=== PATIENT | male | born 1985 | race Caucasian/White ===

== ENCOUNTER 2017-03-03 10:29 | Emergency (ER) | payer SELFPAY ==
[2017-03-03 10:47] VITALS: BP 129/81
--- NOTE | 2017-03-03 11:31 | EDM.PDOC ---
ED HPI GENERAL MEDICAL PROBLEM - General Chief Complaint: Eye Problems Stated Complaint: FB IN LEFT EYE Time Seen by Provider: 03/03/17 10:49 Source of Information: Reports: Patient History Limitations: Reports: No Limitations - History of Present Illness INITIAL COMMENTS - FREE TEXT/NARRATIVE: The patient presents with left eye redness and discomfort. This started late last week. He had been working cattle in the wind and dust and thought he may have gotten something in his eye. He also was grinding with some safety glasses on a few days ago. He has no blurred vision or double vision. He does not wear contacts or glasses. Onset: Gradual Duration: Day(s): Location: Reports: Other (Left eye) Quality: Reports: Sharp Severity: Moderate Improves with: Reports: None Worsens with: Reports: None Associated Symptoms: Reports: No Other Symptoms Left Eye Pain Score (Numeric/FACES): 7 - Related Data Allergies Allergy/AdvReac Type Severity Reaction Status Date / Time No Known Allergies Allergy Verified 03/03/17 10:47 Home Meds: Home Meds Ciprofloxacin [IJD: Ciloxan 0.3% Ophth Soln] 1 drop EYELF .EVERY 4 HOURS #5 ml 03/03/17 [Rx] Past Medical History - Past Health History Medical/Surgical History: Denies Medical/Surgical History Social & Family History - Family History Family Medical History: Noncontributory - Tobacco Use Smoking Status *Q: Current Some Day Smoker Years of Tobacco use: 1 Packs/Tins Daily: 0.1 - Caffeine Use Caffeine Use: Reports: Soda - Recreational Drug Use Recreational Drug Use: No ED ROS GENERAL - Review of Systems Review Of Systems: See Below Constitutional: Reports: No Symptoms HEENT: Reports: Eye Pain Respiratory: Reports: No Symptoms Cardiovascular: Reports: No Symptoms Endocrine: Reports: No Symptoms GI/Abdominal: Reports: No Symptoms : Reports: No Symptoms ED EXAM GENERAL W FULL EYE - Physical Exam Exam: See Below Exam Limited By: No Limitations General Appearance: Alert, No Apparent Distress Eye Exam: Left Eye: Conjunctival Injection, Corneal Abrasion, Foreign Body ( Metal with a slight rust ring), Bilateral Eye: EOMI, PERRL Eyelids: Left: Lid Everted for Exam, Bilateral: Normal Appearance Conjunctiva & Sclera: Left: Injected Cornea Exam: Left: Corneal Abrasion, Foreign Body (Piece of metal to the medial eye), Examined with Flourescein Extraocular Movements: Bilateral: Intact Pupillary Size: Bilateral: 4 mm Pupillary Reaction: Bilateral: Brisk Anterior Chamber: Left: Normal Appearance Ears: Normal External Exam Nose: Normal Inspection Head: Atraumatic, Normocephalic Respiratory/Chest: No Respiratory Distress ED EYE w/ Add Procedure - Eye Procedure Alcaine Drops Administered: Yes (Proparacaine) Eye FB Removal: other (Removed with eye spud) Eye Irrigated w/ Saline (ccs): 10 Progress: The rust ring was removed with the spur drill Course - Vital Signs Last Recorded V/S: Last Vital Signs Temp 97.0 F 03/03/17 10:44 Pulse 58 L 03/03/17 10:44 Resp 16 03/03/17 10:44 BP 129/81 03/03/17 10:44 Pulse Ox 100 03/03/17 10:44 - Re-Assessments/Exams Free Text/Narrative Re-Assessment/Exam: 03/03/17 11:33 I was able to remove the metal with an eye spud and removed the rust ring. I will get him on some cipro drops. Departure - Departure Time of Disposition: 11:35 Disposition: Home, Self-Care 01 Condition: good Clinical Impression: Corneal abrasion Qualifiers: Encounter type: initial encounter Laterality: left Qualified Code(s): S05.02XA - Injury of conjunctiva and corneal abrasion without foreign body, left eye, initial encounter Corneal FB (foreign body) Qualifiers: Encounter type: initial encounter Laterality: left Qualified Code(s): T15.02XA - Foreign body in cornea, left eye, initial encounter - Discharge Information Prescriptions: Ciprofloxacin [IJD: Ciloxan 0.3% Ophth Soln] 1 drop EYELF .EVERY 4 HOURS #5 ml Forms: ED Department Discharge Additional Instructions: Use the cipro drop 1 drop every 4 hours as while awake for 1 week. Please return if you are worse.
== END 2017-03-03 11:47 | disposition home or self-care (01) ==
LOC: JD.ED 10:29
DX: S05.02XA Injury of conjunctiva and corneal abrasion without foreign body, left eye, initial encounter (principal); T15.02XA Foreign body in cornea, left eye, initial encounter; F17.210 Nicotine dependence, cigarettes, uncomplicated
CPT/HCPCS: 65220; 65222; 99283; 99283-25

== ENCOUNTER 2018-01-06 13:23 | Emergency (ER) | payer OTHER ==
[2018-01-06 13:39] VITALS: BP 136/96
[2018-01-06] MEDS ORDERED: Acetaminophen/HYDROcodone 325-5 MG Tab PO ONE (13:53)
[2018-01-06] MEDS ORDERED: ceFAZolin 1 GM Vial IM ONE (13:53)
--- NOTE | 2018-01-06 14:01 | EDM.PDOC ---
ED HPI GENERAL MEDICAL PROBLEM - General Chief Complaint: Lower Extremity Injury/Pain Stated Complaint: R LEG INJURY Time Seen by Provider: 01/06/18 13:45 Source of Information: Reports: Patient History Limitations: Reports: No Limitations - History of Present Illness INITIAL COMMENTS - FREE TEXT/NARRATIVE: Patient is a 32-year-old male who presents to the ED complaining of fracture to the tibia proximal to the knee diagnosed at [facility] at [facility] via x-ray. Patient works as an data processing operator and a circular piece of metal with a metal bur to the end flew approximately 50 feet through the escalator door into the patient's right leg. Bleeding is minimal. Pain is localized to the small puncture site and fracture. No sensory motor deficits distally. Tetanus status is up-to-date. Patient has been nonweightbearing since evaluated at [facility]. He has no additional past medical history. Currently taking no medications. Patient does use chewing tobacco. Right Leg Pain Score (Numeric/FACES): 8 - Related Data Allergies Allergy/AdvReac Type Severity Reaction Status Date / Time No Known Allergies Allergy Verified 03/03/17 10:47 Home Meds: Home Meds Acetaminophen/HYDROcodone [[place] 325-5 MG] 1 tab PO Q6H PRN #20 tablet 01/06/18 [Rx] Cephalexin [Keflex] 500 mg PO Q6H #40 cap 01/06/18 [Rx] Past Medical History - Past Health History Medical/Surgical History: Denies Medical/Surgical History - Past Surgical History Musculoskeletal Surgical History: Reports: Arthroscopic Procedure, Shoulder Surgery, Other (See Below) Other Musculoskeletal Surgeries/Procedures:: rt shoulder Social & Family History - Family History Family Medical History: Noncontributory - Tobacco Use Smoking Status *Q: Current Some Day Smoker Years of Tobacco use: 1 Packs/Tins Daily: 0.1 - Caffeine Use Caffeine Use: Reports: Energy Drinks, Soda - Alcohol Use Days Per Week of Alcohol Use: 7 Number of Drinks Per Day: 2 Total Drinks Per Week: 14 - Recreational Drug Use Recreational Drug Use: No Review of Systems - Review of Systems Review Of Systems: ROS reveals no pertinent complaints other than HPI. ED EXAM, GENERAL - Physical Exam Exam: See Below Exam Limited By: No Limitations General Appearance: Alert, WD/WN, No Apparent Distress Ears: Hearing Grossly Normal Nose: Normal Inspection Throat/Mouth: Normal Voice, No Airway Compromise Neck: Normal Inspection, Supple Respiratory/Chest: No Respiratory Distress, Lungs Clear, Normal Breath Sounds, No Accessory Muscle Use Cardiovascular: Normal Peripheral Pulses, Regular Rate, Rhythm Peripheral Pulses: 4+: Posterior Tibial (L) Extremities: Other (Small 0.25 x 0.25 cm puncture wound to the right lower leg medial aspect of the superior portion of the tibia. Pain with palpation. Mild swelling present. Minimal bleeding present. No sensory motor deficits distally. No pain with palpation of the right knee) Neurological: Alert, Oriented, CN II-XII Intact, Normal Cognition, No Motor/ Sensory Deficits Psychiatric: Normal Affect, Normal Mood Skin Exam: Warm, Dry, Intact, Normal Color Course - Vital Signs Last Recorded V/S: Last Vital Signs Temp 98.0 F 01/06/18 13:34 Pulse 70 01/06/18 13:34 Resp 16 01/06/18 13:34 BP 136/96 H 01/06/18 13:34 Pulse Ox 99 01/06/18 13:34 - Orders/Labs/Meds Orders: Active Orders 24 hr Category Date Time Status Peripheral IV Care [RC] . DIRECTED Care 01/06/18 15:01 Active DME for Discharge [COMM] Stat Oth 01/06/18 15:01 Ordered Peripheral IV Insertion Adult [OM.PC] Routine Oth 01/06/18 15:01 Ordered Meds: Medications Discontinued Medications Generic Name Dose Route Start Last Admin Trade Name Freq PRN Reason Stop Dose Admin Hydrocodone Bitart/Acetaminophen 1 tab 01/06/18 13:53 01/06/18 14:10 [place] 325-5 Mg PO 01/06/18 13:54 1 tab ONETIME ONE Administration Cefazolin Sodium 1 gm 01/06/18 13:53 Ancef IM 01/06/18 13:54 ONETIME ONE Ceftriaxone Sodium Confirm 01/06/18 15:29 01/06/18 16:22 Rocephin Administered 01/06/18 15:30 Not Given Dose 2 gm .ROUTE .STK-MED ONE Ceftriaxone Sodium 2 gm/ 100 mls @ 200 mls/hr 01/06/18 15:01 Sodium Chloride IV 01/06/18 15:30 ONETIME ONE Ceftriaxone Sodium 2 gm/ 100 mls @ 100 mls/hr 01/06/18 15:30 01/06/18 15:42 Sodium Chloride IV 100 mls/hr Q24H HARISH Administration Sodium Chloride 10 ml 01/06/18 15:01 Saline Flush FLUSH ASDIRECTED PRN Keep Vein Open - Re-Assessments/Exams Free Text/Narrative Re-Assessment/Exam: 01/06/[address] Abdul on-call orthopedic surgeon. Recommend CT of the right knee and x-ray of the right tib-fib. We are having the films from [place] pushed as we speak. Will hold off on additional x-rays. Tetanus status is up-to-date. Ordered Ancef 1 g IM and also [place] one tab by mouth. Will hold off on the Ancef until we determine if patient is a surgical candidate or not. X-ray of the right knee has not been pushed. We were informed the fracture was just below the knee. If the patient would walk on it would extend up into the joint. Thus he has been nonweightbearing. We ordered CT of the right knee for evaluation of tibial plateau fracture. CT was obtained and the fracture was actually distal. CT of the tib-fib was obtained with the results as below. CT of the right lower extremity: Slightly comminuted fracture involving mostly the posterior cortex of the tibial diaphysis as noted above. Mild amount of soft tissue air is seen. [address] Abdul. He has reviewed the images. Request Deep cleaning of the wound. 2 g of Rocephin IV prior to discharge. Discharge home with Keflex 500 mg every 6 hours. Follow-up in the clinic Saturday. Dressing changes as usual. Ordered Rocephin 2 g IV. Crutches and knee immobilizer have been ordered. Departure - Departure Time of Disposition: 15:07 Disposition: Home, Self-Care 01 Condition: Good Clinical Impression: Tibia fracture Qualifiers: Encounter type: initial encounter Tibia location: shaft Fracture type: open Fracture morphology: unspecified fracture morphology Laterality: right - Discharge Information Prescriptions: Acetaminophen/HYDROcodone [[place] 325-5 MG] 1 tab PO Q6H PRN #20 tablet PRN Reason: Pain (Severe 7-10) Cephalexin [Keflex] 500 mg PO Q6H #40 cap Instructions: Crutch Use, Adult, [id number], Knee Immobilizer, [id number], Tibial Fracture, Adult Referrals: Chris Abdul MD [Physician] - Forms: ED Department Discharge, ED Return to Work/School Form Additional Instructions: As discussed you will be nonweightbearing utilizing crutches to ambulate. Elevate the affected leg when able to reduce any swelling and pain. May apply ice to the affected area 4 times a day, 20 minutes in duration, do not apply ice directly on the skin. Take Tylenol and ibuprofen in alternating fashion for discomfort. For severe pain take [place] one tab every [address] and while taking the [place]'s to the sedative side effects. Take the full course of Keflex 500 mg every 6 hours for 10 days as instructed. Appt with Dr. Abdul has been made for January 08 at 0930. Cleanse site twice daily with soap and water, pat dry, reapply Triple Antibiotic ointment, and dressing. Do not soak the wound. Keep area clean and dry. Return to ED if he developed any new or worsening symptoms. - My Orders Last 24 Hours: My Active Orders 01/06/18 15:01 Peripheral IV Care [RC] . DIRECTED DME for Discharge [COMM] Stat Peripheral IV Insertion Adult [OM.PC] Routine - Assessment/Plan Last 24 Hours: My Active Orders 01/06/18 15:01 Peripheral IV Care [RC] . DIRECTED DME for Discharge [COMM] Stat Peripheral IV Insertion Adult [OM.PC] Routine
--- NOTE | 2018-01-06 14:45 | CT ---
CT right lower extremity Technique: Multiple axial sections were obtained from the knee inferiorly through the ankle. Reconstructed coronal and sagittal images were reviewed. Findings: Slightly comminuted fracture is identified within mostly the posterior cortex of the tibia near the junction of the mid one third and proximal one third diaphysis. No significant displacement is seen. Soft tissue air is seen along the medial and anterior lower extremity near the fracture. No additional bony abnormality is seen. Impression: 1. Slightly comminuted fracture involving mostly the posterior cortex of the tibial diaphysis as noted above. 2. Mild amount of soft tissue air is seen. Diagnostic code #5
[2018-01-06] MEDS ORDERED: Sodium Chloride 0.9% 10 ML Syringe FLUSH PRN (15:01)
[2018-01-06] MEDS ORDERED: cefTRIAXone 2 GM in Sodium Chloride 0.9% 100 ML IV ONE (15:01)
[2018-01-06] MEDS ORDERED: cefTRIAXone 2 GM Vial ONE (15:29)
[2018-01-06] MEDS ORDERED: cefTRIAXone 2 GM in Sodium Chloride 0.9% 100 ML IV SCH (15:30)
== END 2018-01-06 16:10 | disposition home or self-care (01) ==
LOC: JD.ED 13:23
DX: S82.251B Displaced comminuted fracture of shaft of right tibia, initial encounter for open fracture type I or II (principal); F17.210 Nicotine dependence, cigarettes, uncomplicated; W20.8XXA Other cause of strike by thrown, projected or falling object, initial encounter
CPT/HCPCS: 73700; 96365; 99284; A9270; J0696; J7030; 99283